=== PATIENT | female | born 1965 | race African-American/Black ===

== ENCOUNTER 2017-08-19 18:28 | Emergency (ER) | payer BC, SELFPAY ==
[2017-08-19 19:54] LABS: Urine Blood NEGATIVE (NEG); Urine Glucose NEGATIVE (NEG); Urine Protein NEGATIVE (NEG)
--- NOTE | 2017-08-19 20:14 | RAD REPORT ---
EXAM DESCRIPTION: CT - C Spine Wo Con - 08/19/2017 7:54 pm CLINICAL HISTORY: Trauma, neck injury, radiculopathy. COMPARISON: None. TECHNIQUE: Axial 2 mm thick images of the cervical spine were obtained with sagittal and coronal rec onstruction images generated and reviewed. All CT scans are performed using dose optimization technique as appropriate and may include automated exposure control or mA/KV adjustment according to patient size. FINDINGS: Cervical body height and alignment are normal. No disk space narrowing. No fracture or acu te bony abnormality. No paraspinal mass or hematoma. IMPRESSION: No acute cervical spine abnormality seen.
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
[2017-08-19] MEDS ORDERED: IBUPROFEN 400 MG TAB ONE (21:13)
== END 2017-08-19 20:57 | disposition home or self-care (01) ==
LOC: ER 18:28
DX: M62.830 Muscle spasm of back (principal); V49.49XA Driver injured in collision with other motor vehicles in traffic accident, initial encounter
CPT/HCPCS: 72125; 72131; 81003; 81025; 99285

== ENCOUNTER 2019-07-11 15:08 | Emergency (ER) | payer BC ==
[2019-07-11] MEDS ORDERED: ONDANSETRON 4 MG/2 ML VIAL ONE (15:55)
[2019-07-11] MEDS ORDERED: MORPHINE 4 MG/ML SYR ONE ×2 (15:55→19:30)
[2019-07-11] MEDS ORDERED: ACETAMINOPHEN 500 MG TAB ONE (15:55)
[2019-07-11] MEDS ORDERED: NA CHLORIDE 0.9% 2,000 ML ONE (15:55)
[2019-07-11] MEDS ORDERED: METRONIDAZOLE 500mg IVPB 500 MG/100 ML BAG IV ONE (15:56)
--- NOTE | 2019-07-11 16:04 | RAD REPORT ---
EXAM DESCRIPTION: RAD - Chest Single View - 07/11/2019 3:54 pm CLINICAL HISTORY: DYSPNEA Chest pain. COMPARISON: Thorax W/ Con dated 06/17/2019 FINDINGS: Portable technique limits examination quality. The lungs are grossly clear. The heart is normal in size. No displaced fractures.A left port catheter its tip in the SVC. IMPRESSION: No acute intrathoracic process suspected.
[2019-07-11 16:09] LABS: Basophils % 0.5 % (0-1.3); Hematocrit 40.3 % (36.0-45.0); Lymphocytes % 22.7 % (15.3-44.8); MPV 10.6 fL (7.6-11.3); RBC Red Blood Cell Count 5.67 M/uL (3.86-4.86)
[2019-07-11 16:22] LABS: Protime INR 1.01
[2019-07-11 16:34] LABS: ALT/SGPT 52 U/L (12-78); AST/SGOT 40 U/L (15-37); Albumin 3.9 g/dL (3.4-5.0); Alkaline Phosphatase 97 U/L (45-117); BUN Blood Urea Nitrogen 16 mg/dL (7-18); Bicarbonate 30 mmol/L (21-32); Bilirubin Direct 0.1 mg/dL (0-0.2); Bilirubin Total 0.4 mg/dL (0.2-1.0); Glucose Level 99 mg/dL (74-106); Lipase 48 U/L (73-393); Protein, Total 8.3 g/dL (6.4-8.2); Sodium Level 127 mmol/L (136-145); Troponin (Emerg Dept Use Only) < 0.02 ng/mL (0.0-0.045)
[2019-07-11 16:39] LABS: Blood Morphology Comment NOT SEEN (NOT SEEN); Platelet Estimate DECR
[2019-07-11 16:51] LABS: Urine Amorphous Sediment 1+ /HPF (NONE SEEN); Urine Bacteria <20 /HPF (<20); Urine Culture Reflex Order NOT NEEDED; Urine Mucus 1+ /HPF (NONE SEEN); Urine RBC <5 /HPF (NONE SEEN)
[2019-07-11 16:53] LABS: Urine Blood NEGATIVE (NEG); Urine Glucose NEGATIVE (NEG); Urine Protein 1+ (NEG); Urine Specific Gravity 1.015 (1.005-1.030); Urine pH >8.5 (5.0-7.0)
--- NOTE | 2019-07-11 17:28 | RAD REPORT ---
EXAM DESCRIPTION: CTAbdomen Pelvis W Contrast - 07/11/2019 5:21 pm CLINICAL HISTORY: Abdominal pain. ABD PAIN COMPARISON: No comparisons TECHNIQUE: Biphasic CT imaging of the abdomen and pelvis was performed with 100 ml non-ionic IV cont rast. All CT scans are performed using dose optimization technique as appropriate and may include automated exposure control or mA/KV adjustment according to patient size. FINDINGS: The lung bases are clear.Small hiatal hernia. The liver, spleen, pancreas, adrenal glands and kidneys are within normal limits. No bowel obstruction, free air, free fluid or abscess. The appendix is normal. No evidence of signi ficant lymphadenopathy. Mild lower lumbar spondylosis. IMPRESSION: No acute intra-abdominal or pelvic finding.
[2019-07-11] MEDS ORDERED: KCL 20 MEQ/100 mL IVPB 20 MEQ/100 ML BAG IV ONE (17:38)
[2019-07-11] MEDS ORDERED: NA CHLORIDE 0.9% 500 ML ONE (18:09)
[2019-07-11 19:03] LABS: BUN Blood Urea Nitrogen 15 mg/dL (7-18); Bicarbonate 30 mmol/L (21-32); Glucose Level 91 mg/dL (74-106); Potassium 3.4 mmol/L (3.5-5.1); Sodium Level 134 mmol/L (136-145)
--- NOTE | 2019-07-11 19:10 | ER ---
Nurse's Notes [facility] Name: Sharon Kaufman Age: 54 yrs Sex: Female : 1965 Arrival Date: 07/11/2019 Time: 15:10 Bed 23 Private MD: Diagnosis: Nausea and vomiting;Diarrhea, unspecified;Dehydration;Generalized abdominal pain Presentation: 07/11 15:19 Chief complaint: Patient states: Abdominal pain with nausea and diarrhea for 6 days ll1 after getting chemo treatment last . Chest pain intermittently for 1 week. Reports SOB. Coronavirus screen: The patient has NOT traveled to [place] in the past 14 days. Ebola Screen: No symptoms or risks identified at this time. Initial Sepsis Screen: Does the patient meet any 2 criteria? RR > 20 per min. HR > 90 bpm. Yes Does the patient have a suspected source of infection? Yes: Acute abdominal pain. Risk Assessment: Do you want to hurt yourself or someone else? Patient reports no desire to harm self or others. 15:19 Method Of Arrival: Wheelchair ll1 15:19 Acuity: MAKENZIE 3 ll1 15:30 Onset of symptoms was July 07, 2019. 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 - Social history:: Patient/guardian denies using alcohol, street drugs, tobacco products, Smoking status: Patient denies any tobacco usage or history of. Screenin:30 Abuse screen: Denies threats or abuse. Nutritional screening: Has had N/V for 3 or more vc days. Tuberculosis screening: No symptoms or risk factors identified. Fall Risk None identified. Assessment: 15:30 General: Appears in no apparent distress. uncomfortable, ill, Behavior is cooperative, vc agitated, anxious, crying. Pain: Complains of pain in abdomen. Neuro: Level of Consciousness is awake, alert, obeys commands, Oriented to person, place, time. Cardiovascular: Patient's skin is warm and dry. Respiratory: Airway is patent Respiratory effort is even, unlabored, Respiratory pattern is symmetrical, tachypnea. GI: Bowel sounds present X 4 quads. Abd is soft Abdomen is tender to palpation X 4 quads. : No signs and/or symptoms were reported regarding the genitourinary system. EENT: No deficits noted. Derm: Skin temperature is warm. Musculoskeletal: Circulation, motion, and sensation intact. Range of motion: intact in all extremities. 16:30 Reassessment: Patient and/or family updated on plan of care and expected duration. Pain vc level reassessed. Patient states feeling better. Patient states symptoms have improved. 17:15 Reassessment: Patient and/or family updated on plan of care and expected duration. Pain vc level reassessed. Patient is alert, oriented x 3, equal unlabored respirations, skin warm/dry/pink. 18:15 Reassessment: Patient and/or family updated on plan of care and expected duration. Pain vc level reassessed. Patient is alert, oriented x 3, equal unlabored respirations, skin warm/dry/pink. Patient states feeling better. Patient states symptoms have improved. 19:00 Reassessment: Patient and/or family updated on plan of care and expected duration. Pain vc level reassessed. Patient is alert, oriented x 3, equal unlabored respirations, skin warm/dry/pink. Patient states feeling better. Patient states symptoms have improved. Vital Signs: 15:19 BP 126 / 77; Pulse 108; Resp 22; Temp 99.0(T); Pulse Ox 100% ; Pain 10/10; ll1 15:30 BP 128 / 78; Pulse 127; Resp 34; Pulse Ox 100% on R/A; Pain 10/10; vc 15:46 Weight 56.7 kg; vc 16:30 Pulse 95; Resp 25; Pulse Ox 100% on R/A; vc 17:30 BP 128 / 62; Pulse 97; Resp 15; Temp 98.2; Pulse Ox 97% on R/A; Pain 0/10; vc 18:00 BP 110 / 83; Pulse 87; Resp 18; Pulse Ox 100% on R/A; vc 19:00 BP 116 / 63; Pulse 83; Resp 13; Pulse Ox 100% on R/A; vc ED Course: 15:10 Patient arrived in ED. fj1 15:14 Radha Leung, RN is Primary Nurse. vc 15:21 Triage completed. ll1 15:22 Roszak, Kevin, PA is PHCP. jr8 15:22 Ronald Mora MD is Attending Physician. jr8 15:22 Arm band placed on left wrist. Patient placed in an exam room. ll1 15:30 Patient has correct armband on for positive identification. Placed in gown. Bed in low vc position. Call light in reach. Side rails up X2. acid changer on. Pulse ox on. NIBP on. 15:54 Chest Single View XRAY In Process Unspecified. EDMS 17:21 CT Abd/Pelvis - IV Contrast Only In Process Unspecified. EDMS 19:09 Lola Patricio MD is Referral Physician. jr8 19:35 No provider procedures requiring assistance completed. IV discontinued, intact, vc bleeding controlled, No redness/swelling at site. Pressure dressing applied. Administered Medications: 15:50 Drug: Acetaminophen 1000 mg Route: PO; vc 17:17 Follow up: Response: No adverse reaction; Temperature is decreased vc 16:00 Drug: Zofran (Ondansetron) 4 mg Route: IVP; Site: left antecubital; vc 17:15 Follow up: Response: No adverse reaction; Marked relief of symptoms vc 16:04 Drug: morphine 4 mg Route: IVP; Site: left antecubital; vc 17:16 Follow up: Response: No adverse reaction; Pain is decreased vc 16:10 Drug: NS 0.9% (30 ml/kg) 30 ml/kg Route: IV; Rate: bolus; Site: right antecubital; vc 16:10 Drug: Flagyl 500 mg Volume: 100 ml; Route: IVPB; Rate: 200 ml/hr; Infused Over: 30 vc mins; Site: right antecubital; 16:40 Follow up: IV Status: Completed infusion; IV Intake: 100ml vc 16:12 Drug: NS 0.9% (30 ml/kg) 30 ml/kg Route: IV; Rate: bolus; Site: left antecubital; vc 16:30 Follow up: IV Status: Completed infusion; IV Intake: 1700ml vc 16:12 Drug: Cefepime 1 grams Route: IVPB; Rate: 200 ml/hr; Infused Over: 30 mins; Site: left vc antecubital; 17:39 Drug: Potassium Chloride 20 mEq Route: IV; Rate: calculated rate; Site: left vc antecubital; 18:30 Follow up: IV Status: Completed infusion; IV Intake: 100ml vc 19:35 Drug: morphine 4 mg Route: IVP; Site: right forearm; vc 19:35 Follow up: Response: No adverse reaction; Medication administered at discharge. vc Intake: 16:30 IV: 1700ml; Total: 1700ml. vc 16:40 IV: 100ml; Total: 1800ml. vc 18:30 IV: 100ml; Total: 1900ml. vc Outcome: 19:09 Discharge ordered by MD. guzman 19:35 Discharged to home ambulatory. vc 19:35 Condition: good 19:35 Discharge instructions given to patient, Instructed on discharge instructions, follow up and referral plans. Demonstrated understanding of instructions, follow-up care. 19:39 Patient left the ED. vc Signatures: Dispatcher [employer] EDMS Kevin Mcguire PA PA jr8 Radha Leung RN RN Sami Morales fj1 Jenise Aguirre RN RN ll1
--- NOTE | 2019-07-11 19:11 | EDPHYS ---
Physician Documentation [facility] Name: Sharon Kaufman Age: 54 yrs Sex: Female : 1965 Arrival Date: 07/11/2019 Time: 15:10 Bed 23 Private MD: ED Physician Ronald Mora HPI: 07/11 17:04 This 54 yrs old Black Female presents to ER via Wheelchair with complaints of Abdominal jr8 Pain, Nausea, Weakness, Chest Pain > 30 y/o. 17:04 Onset: The symptoms/episode began/occurred acutely, 5 day(s) ago. Associated signs and jr8 symptoms: Pertinent positives: nausea, vomiting, and diarrhea. The symptoms are described as stabbing. Modifying factors: The symptoms are alleviated by nothing, the symptoms are aggravated by nothing. Severity of pain: At its worst the pain was moderate in the emergency department the pain is unchanged. The patient has not experienced similar symptoms in the past. The patient has not recently seen a physician. Patient with stage 1 breast cancer who took her first chemo treatment this past . Stated that two days later started to have n/v/d and abdominal pain that is not resolving . 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 - Social history:: Patient/guardian denies using alcohol, street drugs, tobacco products, Smoking status: Patient denies any tobacco usage or history of. ROS: 17:04 Eyes: Negative for injury, pain, redness, and discharge, ENT: Negative for injury, jr8 pain, and discharge, Neck: Negative for injury, pain, and swelling, Cardiovascular: Negative for chest pain, palpitations, and edema, Respiratory: Negative for shortness of breath, cough, wheezing, and pleuritic chest pain, Back: Negative for injury and pain, MS/Extremity: Negative for injury and deformity, Skin: Negative for injury, rash, and discoloration, Neuro: Negative for headache, weakness, numbness, tingling, and seizure. 17:04 Abdomen/GI: Positive for abdominal pain, nausea, vomiting, and diarrhea, Negative for abdominal distension, anorexia, dysphagia, hematemesis, black/tarry stool, rectal pain, rectal bleeding, bowel incontinence, flatulence. Exam: 17:04 Eyes: Pupils equal round and reactive to light, extra-ocular motions intact. Lids and jr8 lashes normal. Conjunctiva and sclera are non-icteric and not injected. Cornea within normal limits. Periorbital areas with no swelling, redness, or edema. ENT: Nares patent. No nasal discharge, no septal abnormalities noted. Tympanic membranes are normal and external auditory canals are clear. Oropharynx with no redness, swelling, or masses, exudates, or evidence of obstruction, uvula midline. Mucous membranes moist. Chest/axilla: Normal chest wall appearance and motion. Nontender with no deformity. No lesions are appreciated. Cardiovascular: Regular rate and rhythm with a normal S1 and S2. No gallops, murmurs, or rubs. Normal PMI, no JVD. No pulse deficits. Respiratory: Lungs have equal breath sounds bilaterally, clear to auscultation and percussion. No rales, rhonchi or wheezes noted. No increased work of breathing, no retractions or nasal flaring. Back: No spinal tenderness. No costovertebral tenderness. Full range of motion. Skin: Warm, dry with normal turgor. Normal color with no rashes, no lesions, and no evidence of cellulitis. MS/ Extremity: Pulses equal, no cyanosis. Neurovascular intact. Full, normal range of motion. Neuro: Awake and alert, GCS 15, oriented to person, place, time, and situation. Cranial nerves II-XII grossly intact. Motor strength 5/5 in all extremities. Sensory grossly intact. Cerebellar exam normal. Normal gait. 17:04 Abdomen/GI: Inspection: abdomen appears normal, Bowel sounds: active, all quadrants, Palpation: soft, in all quadrants, mild abdominal tenderness, in the right upper quadrant, left upper quadrant, right lower quadrant and left lower quadrant, mass, is not appreciated, rebound tenderness, is not appreciated, voluntary guarding, is not appreciated, involuntary guarding, is not appreciated, no appreciated organomegaly, Indicators: McBurney's point is not tender, Villarreal's sign is negative, Rovsing's sign is negative, Liver: tenderness, is not appreciated. Vital Signs: 15:19 BP 126 / 77; Pulse 108; Resp 22; Temp 99.0(T); Pulse Ox 100% ; Pain 10/10; ll1 15:30 BP 128 / 78; Pulse 127; Resp 34; Pulse Ox 100% on R/A; Pain 10/10; vc 15:46 Weight 56.7 kg; vc 16:30 Pulse 95; Resp 25; Pulse Ox 100% on R/A; vc 17:30 BP 128 / 62; Pulse 97; Resp 15; Temp 98.2; Pulse Ox 97% on R/A; Pain 0/10; vc 18:00 BP 110 / 83; Pulse 87; Resp 18; Pulse Ox 100% on R/A; vc 19:00 BP 116 / 63; Pulse 83; Resp 13; Pulse Ox 100% on R/A; vc MDM: 15:24 Patient medically screened. [facility] 19:07 Data reviewed: vital signs, nurses notes, lab test result(s), EKG, radiologic studies, [facility] CT scan, plain films. Data interpreted: Pulse oximetry: on room air is 100 %. Interpretation: normal. Counseling: I had a detailed discussion with the patient and/or guardian regarding: the historical points, exam findings, and any diagnostic results supporting the discharge/admit diagnosis, lab results, radiology results, the need for outpatient follow up, Oncology, to return to the emergency department if symptoms worsen or persist or if there are any questions or concerns that arise at home. Response to treatment: the patient's symptoms have markedly improved after treatment, patient is well hydrated. ED course: Patient feeling much better after fluids and electrolyte replacement. Labs near normal now. No acute infectious findings. Called her oncologist who is good with everything and her going home as long as pain and nausea is controlled which it is at this point. Will see her in clinic tomorrow morning. Patient good with this plan and knows to come back if worse . 07/11 15:23 Order name: Basic Metabolic Panel; Complete Time: 17:02 [facility] 07/11 15:23 Order name: Blood Culture Adult (2) [facility] 07/11 15:23 Order name: CBC with Diff; Complete Time: 16:39 [facility] 07/11 15:23 Order name: Lactate; Complete Time: 16:39 [facility] 07/11 15:23 Order name: LFT's; Complete Time: 17:02 07/11 15:23 Order name: Lipase; Complete Time: 17:02 07/11 15:23 Order name: Procalcitonin; Complete Time: 16:54 07/11 15:23 Order name: Protime (+inr); Complete Time: 16:39 07/11 15:23 Order name: Ptt, Activated; Complete Time: 16:39 07/11 15:23 Order name: Troponin (emerg Dept Use Only); Complete Time: 17:02 07/11 15:23 Order name: Urine Microscopic Only; Complete Time: 16:54 07/11 15:56 Order name: Glucose, Ancillary Testing; Complete Time: 16:08 [facility] 07/11 15:59 Order name: Urine Dipstick--Ancillary (enter results); Complete Time: 16:54 07/11 15:59 Order name: Urine --Ancillary (enter results); Complete Time: 16:54 07/11 15:23 Order name: Chest Single View XRAY; Complete Time: 16:08 07/11 15:23 Order name: Accucheck; Complete Time: 15:47 07/11 15:23 Order name: Cardiac monitoring; Complete Time: 15:47 07/11 15:23 Order name: EKG - Nurse/Tech; Complete Time: 15:47 07/11 16:38 Order name: Manual Differential; Complete Time: 16:39 [facility] 07/11 16:55 Order name: CT Abd/Pelvis - IV Contrast Only; Complete Time: 17:31 07/11 18:23 Order name: BMP; Complete Time: 19:06 07/11 18:23 Order name: Lactate; Complete Time: 19:10 07/11 15:23 Order name: IV Saline Lock - Large Bore; Complete Time: 15:47 07/11 15:23 Order name: Labs collected and sent; Complete Time: 15:48 07/11 15:23 Order name: O2 Per Protocol; Complete Time: 15:48 07/11 15:23 Order name: O2 Sat Monitoring; Complete Time: 15:48 07/11 15:23 Order name: Urine Dipstick-Ancillary (obtain specimen); Complete Time: 15:48 jr8 Administered Medications: 15:50 Drug: Acetaminophen 1000 mg Route: PO; vc 17:17 Follow up: Response: No adverse reaction; Temperature is decreased vc 16:00 Drug: Zofran (Ondansetron) 4 mg Route: IVP; Site: left antecubital; vc 17:15 Follow up: Response: No adverse reaction; Marked relief of symptoms vc 16:04 Drug: morphine 4 mg Route: IVP; Site: left antecubital; vc 17:16 Follow up: Response: No adverse reaction; Pain is decreased vc 16:10 Drug: NS 0.9% (30 ml/kg) 30 ml/kg Route: IV; Rate: bolus; Site: right antecubital; vc 16:10 Drug: Flagyl 500 mg Volume: 100 ml; Route: IVPB; Rate: 200 ml/hr; Infused Over: 30 vc mins; Site: right antecubital; 16:40 Follow up: IV Status: Completed infusion; IV Intake: 100ml vc 16:12 Drug: NS 0.9% (30 ml/kg) 30 ml/kg Route: IV; Rate: bolus; Site: left antecubital; vc 16:30 Follow up: IV Status: Completed infusion; IV Intake: 1700ml vc 16:12 Drug: Cefepime 1 grams Route: IVPB; Rate: 200 ml/hr; Infused Over: 30 mins; Site: left vc antecubital; 17:39 Drug: Potassium Chloride 20 mEq Route: IV; Rate: calculated rate; Site: left vc antecubital; 18:30 Follow up: IV Status: Completed infusion; IV Intake: 100ml vc 19:35 Drug: morphine 4 mg Route: IVP; Site: right forearm; vc 19:35 Follow up: Response: No adverse reaction; Medication administered at discharge. vc Disposition: 07/11/19 19:09 Discharged to Home. Impression: Nausea and vomiting, Diarrhea, unspecified, Dehydration, Generalized abdominal pain. - Condition is Stable. - Discharge Instructions: Food Choices to Help Relieve Diarrhea, Adult, Dehydration, Adult, Diarrhea, Adult, Nausea and Vomiting, Adult. - Prescriptions for Bentyl 20 mg Oral Tablet - take 1 tablet by ORAL route every 6 hours As needed; 20 tablet. - Medication Reconciliation Form, Thank You Letter, Antibiotic Education, Prescription Opioid Use form. - Follow up: Lola Patricio MD; When: Tomorrow; Reason: Recheck today's complaints, Continuance of care, Re-evaluation by your physician. - Problem is new. - Symptoms have improved. Signatures: Dispatcher [employer] EDMS Kevin Mcguire PA PA jr8 Ronald Mora MD MD ps1 Radha Leung RN RN vc Jenise Aguirre RN RN ll1 Corrections: (The following items were deleted from the chart) 19:39 19:09 07/11/2019 19:09 Discharged to Home. Impression: Nausea and vomiting; Diarrhea, vc unspecified; Dehydration; Generalized abdominal pain. Condition is Stable. Forms are Medication Reconciliation Form, Thank You Letter, Antibiotic Education, Prescription Opioid Use. Follow up: Lola Doe; When: Tomorrow; Reason: Recheck today's complaints, Continuance of care, Re-evaluation by your physician. Problem is new. Symptoms have improved. jr8
[2019-07-11 20:08] VITALS: TEMP 98.2
[2019-07-11 20:09] VITALS: O2SAT 100
[2019-07-11 20:11] VITALS: BP 116/63
--- NOTE | 2019-07-15 15:41 | EKG ---
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
== END 2019-07-11 19:39 | disposition home or self-care (01) ==
LOC: ER 15:08
DX: E86.0 Dehydration (principal); C50.919 Malignant neoplasm of unspecified site of unspecified female breast; R19.7 Diarrhea, unspecified; R10.84 Generalized abdominal pain; I10 Essential (primary) hypertension
CPT/HCPCS: 96365; 96367; 93005; 87040 ×2; 85025; 80048 ×2; 36415; 81025; 85610; 82947; 80076; 83605 ×2; 85730; 84484; 83690; 84145; 74177; 71045; 96375; 99284; Q9967; J7040; J7030; J2405; 81003; 81015